=== PATIENT | male | born 2000 | race Caucasian/White ===

== ENCOUNTER 2021-04-01 12:25 | Emergency (ER) | payer OTHER, SELFPAY ==
--- NOTE | ~2021-04-01 | XR_ITS ---
XR foot LT min 3V DATE: 04/01/2021 13:19 INDICATION: Left foot pain and swelling. No known injury. TECHNIQUE: 4 views COMPARISON: None FINDINGS: No fracture or dislocation, periosteal reaction or bone destruction. Joint spaces are prese rved. No erosive change. IMPRESSION: Negative Reviewed, dictated and finalized at location A. [employer] HEL[employer] IMPRESSION: Negative
--- NOTE | 2021-04-01 12:46 | ED.LOWEXIN ---
HPI - Extremity Injury (Lower) General Chief Complaint: Extremity Injury, Lower Stated Complaint: lt foot pain and swelling Time Seen by Provider: 04/01/21 12:46 Source: patient and RN notes reviewed History of Present Illness HPI Narrative: Patient is a 20-year-old male who presents the urgent care with his dad with complaints of swelling and pain under the left great toe. Patient states that he noticed it 2 days ago after running the day prior. Denies of any known injury or stepping on any objects. Patient states that he has been icing and elevating the foot with mild relief. Patient does not have much tenderness to touch however only notices with ambulation and weightbearing. No other acute complaints. No acute distress noted. Patient and father aware of the plan of care. Some parts of this dictation were generated by voice recognition software and may contain typographical and/or grammatical inaccuracies. Related Data Home Medications Medication Instructions Recorded Confirmed No Home Medications 04/01/21 04/01/21 Allergies Allergy/AdvReac Type Severity Reaction Status Date / Time No Known Allergies Allergy Verified 04/01/21 13:11 Review of Systems Review of Systems: CONSTITUTIONAL: Denies fever, chills, or sweats. EYES: Denies visual changes, redness, or discharge. ENT: Denies rhinorrhea, congestion, sore throat, or otalgia. CARDIOVASCULAR: Denies chest pain, palpitations, or edema. RESPIRATORY: Denies cough or dyspnea. GASTROINTESTINAL: Denies abdominal pain, nausea, vomiting, or diarrhea. GENITOURINARY: Denies dysuria or hematuria. SKIN: Denies rash or itching. MUSCULOSKELETAL: Reports of pain and swelling of the left great toe NEUROLOGIC: Denies headache, numbness, or weakness. All other systems reviewed are negative, except as documented in HPI. PMFSH Comments At the time of my signature, I reviewed and agree with the nursing past medical, surgical, social, and family history. There is no relevant family history pertinent to the patient complaint. Exam Narrative: GENERAL: This is a well-nourished, well-developed patient, in no apparent distress. HEAD: normocephalic, atraumatic. EYES: PERRL. Sclera clear/white. Vision is grossly intact. EARS: External ears normal NOSE: External nose normal with no obvious nasal discharge, nares without redness, no rhinorrhea. THROAT: Mucous membranes moist NECK: Neck supple CARDIOVASCULAR: Regular rate and rhythm without murmurs, gallops, or rubs. RESPIRATORY: Clear to auscultation. Breath sounds equal bilaterally. No wheezes, rales, or rhonchi. SKIN: warm, intact with no suspicious lesions or rash, good texture and turgor. NEURO: awake, alert, and oriented to person, place and time. There were no obvious focal neurologic abnormalities. EXTREMITIES: Mild tenderness with weightbearing to the plantar aspect of the left great toe with mild to moderate edema and mild erythema. Positive strong left radial pulse with capillary refill less than 2 seconds. Range of motion to left lower extremity within normal limits. Course Vital Signs Vital signs: Vital Signs Temperature 98.1 F 04/01/21 12:59 Pulse Rate 65 04/01/21 12:59 Respiratory Rate 18 04/01/21 12:59 Blood Pressure 139/62 04/01/21 12:59 Pulse Oximetry 100 04/01/21 12:59 Temperature 98.1 F 04/01/21 12:59 Pulse Rate 65 04/01/21 12:59 Respiratory Rate 18 04/01/21 12:59 Blood Pressure 139/62 04/01/21 12:59 Pulse Oximetry 100 04/01/21 12:59 Reviewed MDM - Extremity Injury (Lower) MDM Narrative Medical decision making narrative: Reviewed x-ray results with patient and father. Aware that x-ray was negative for fracture or deformity. Advised the patient to refrain from running until symptoms have resolved. It is likely a sprain of the great toe which takes approximately 1 week to resolve. May use athletic tape while running to help reduce pain or reinjury. Use Tylenol/ibuprofen
[2021-04-01 12:59] VITALS: BP 139/62; PULSE 65; RESP 18; TEMP 36.7; O2SAT 100
== END 2021-04-01 13:35 | disposition home or self-care (01) ==
PROVIDERS: Emergency Provider Nurse Practitioner Family
DX: S93.502A Unspecified sprain of left great toe, initial encounter (principal); X58.XXXA Exposure to other specified factors, initial encounter; Y93.02 Activity, running
CPT/HCPCS: 73630; 99203; G0463